=== PATIENT | male | born 1960 | race Caucasian/White ===

== ENCOUNTER 2018-03-23 07:08 | Day surgery (SDC) | payer OTHER ==
[~2018-03-23] VITALS: Ht 172.7 cm; Wt 72.6 kg
[2018-03-23] VITALS (11 sets, daily range): BP systolic 120–149; BP diastolic 85–95
[~2018-03-23 07:08] MED LIST: CRESTOR10 M1 ORAL; LOSARTAN POTAS100 MG ORAL; METOPROLOL SUCC50 MG ORAL
[2018-03-23] MEDS ORDERED: LR 1000ml 1,000 ML IVLG SCH (07:13)
[2018-03-23] MEDS ORDERED: fentaNYL 100 mcg/2 mL IV ONE (07:41)
[2018-03-23] MEDS ORDERED: Lidocaine 1% MPF 10mg/ml 5ml ONE (07:41)
[2018-03-23] MEDS ORDERED: Propofol 200mg/20ml IV ONE ×2 (07:42→08:00)
[2018-03-23] MEDS ORDERED: LR 1000ml ONE (08:00)
--- NOTE | 2018-03-23 08:07 | Short Stay Surgery H&P ---
History of Present Illness History of Present Illness Chief Complaint see typed H&P HPI Britton Mcgregor is a 57 year old male who was admitted on for Screening Patient History Allergies: Coded Allergies: AMOXICILLIN (Verified Adverse Reaction, Severe, 03/23/18) LIVER FAILURE CLAVULANIC ACID (Verified Adverse Reaction, Severe, 03/23/18) LIVER FAILURE CORTISONE (Verified Adverse Reaction, Severe, 03/23/18) LIVER FAILURE Medication History Scheduled Losartan Potassium (Losartan Potassium), 100 MG ORAL DAILY, (Reported) Metoprolol Succinate* (Metoprolol Succinate*), 50 MG ORAL DAILY, (Reported) Rosuvastatin Calcium (Crestor), 5 MG ORAL DAILY, (Reported) Physical Exam Vital Signs Last Vital Signs Date Time Temp Pulse Resp B/P (MAP) Pulse Ox O2 Delivery O2 Flow Rate FiO2 03/23/18 07:33 97.7 61 20 137/87 (104) 97.7 03/23/18 07:32 Room Air Plan Attestation Are the patient's medical conditions optimized for surgery? Chris Melgoza MD Mar 23, 2018 08:07
--- NOTE | 2018-03-23 08:07 | Pre-Procedure Note/Attestation ---
Pre-Procedure Note/Attestation Complete Prior to Procedure Planned Procedure: not applicable Procedure Narrative: colonoscopy Indications for Procedure Pre-Operative Diagnosis: screening Attestation I attest that I discussed the nature of the procedure; its benefits; risks and complications; and alternatives (and the risks and benefits of such alternatives ), prior to the procedure, with the patient (or the patient's legal field representative/health education). I attest that, if there was a reasonable possibility of needing a blood transfusion, the patient (or the patient's legal field representative/health education) was given the [facility] standardized written summary, pursuant to the [place] Blood Safety Act ([place] Health and Safety Code # 1645, as amended). I attest that I re-evaluated the patient just prior to the surgery and that there has been no change in the patient's H&P, except as documented below: Chris Melgoza MD Mar 23, 2018 08:07
--- NOTE | 2018-03-23 09:07 | Endoscopy Procedure Note ---
Endoscopy Procedure Note General Indication for Procedure: screening Procedures Performed: colonoscopy Operative Findings/Diagnosis: 3-4 mm ascending polyp - bx off, redundant colon , mild hemorroid Specimen: yes Pt Tolerated Procedure Well: Yes Estimated Blood Loss: none Anesthesia Anesthesiologist: see report Anesthesia: MAC, moderate sedation Medications Medication Given: see anesthesia record Inserted Devices Implant(s) used?: No GI Core Measures 50 yrs or older w/o bx or poly: No 10yrs. F/U not recommended: No If not recommended, why?: Above average risk 10 yrs. F/U needed: No 18 years or older w/prev. colo: Yes <3yrs. since last colonoscopy: No Med reason:<3 yrs.: System Reason:<3 yrs.: Last colonoscopy >= to 3yrs: Yes Chris Melgoza MD Mar 23, 2018 09:07
--- NOTE | 2018-03-23 09:10 | Brief Operative Note ---
Immediate Post Operative Note Operative Note Chief Complaint: screen Pre-op Diagnosis: screening Procedure: colon, bx Post-op Diagnosis: ascending colon polyp, 3-4mm, bx off redundant colon mild rhoid Surgeon: amairani Anesthesiologist: see report Anesthesia: MAC Specimen: yes Complications: none Condition: stable Fluids: see report Estimated Blood Loss: none Drains: none Implant(s) used?: No Chris Melgoza MD Mar 23, 2018 09:10
--- NOTE | 2018-03-23 09:24 | Anethesia Preoperative Eval ---
Anesthesia Pre-op PMH/ROS General Date of Evaluation: Mar 23, 2018 Time of Evaluation: 07:55 Anesthesiologist: ASA Score: ASA 3 Mallampati Score Class I : Soft palate, uvula, fauces, pillars visible Class II: Soft palate, uvula, fauces visible Class III: Soft palate, base of uvula visible Class IV: Only hard plate visible Mallampati Classification: Class II Surgeon: amairani Diagnosis: polyp screenig Surgical Procedure: colonoscopy Allergies: Coded Allergies: AMOXICILLIN (Verified Adverse Reaction, Severe, 03/23/18) LIVER FAILURE CLAVULANIC ACID (Verified Adverse Reaction, Severe, 03/23/18) LIVER FAILURE CORTISONE (Verified Adverse Reaction, Severe, 03/23/18) LIVER FAILURE Medications: see eMAR Past Medical History Cardiovascular: Reports: HTN Pulmonary: Denies: asthma, COPD, LETA, other Gastrointestinal/Genitourinary: Reports: other - h/o liver failure 2017- resolved; Denies: GERD, CRI, ESRD Neurologic/Psychiatric: Denies: dementia, CVA, depression/anxiety, TIA, other Endocrine: Denies: DM, hypothyroidism, steroids, other HEENT: Denies: cataract (L), cataract (R), glaucoma, [place] (L), [place] (R), other Hematology/Immune: Denies: anemia, DVT, bleeding disorder, other Musculoskeletal/Integumentary: Reports: other - gout; Denies: OA, RA, DJD, DDD, edema Anesthesia Pre-op Phys. Exam Physician Exam Last Vital Signs Date Time Temp Pulse Resp B/P (MAP) Pulse Ox O2 Delivery O2 Flow Rate FiO2 03/23/18 09:15 97.4 62 19 120/88 100 Simple Mask 6 97.4 Constitutional: NAD Cardiovascular: RRR Respiratory: CTA Gastrointestinal: S/NT/ND Airway Exam Mallampati Score: Class II MO: full ROM: full Teeth: intact Dentures: no upper, no lower Anesthesia Pre-op A/P Risk Assessment & Plan Assessment: asa 3 Plan: MAC Status Change Before Surgery: No Pre-Antibiotics Drug: none Kareen Murillo M.D. Mar 23, 2018 09:24
--- NOTE | 2018-03-23 09:26 | Immediate Post-Op Evaluation ---
Immediate Post-Op Evalulation Immediate Post-Op Evalulation Procedure: colonoscopy Date of Evaluation: Mar 23, 2018 Time of Evaluation: 09:10 IV Fluids: LR 300ml Blood Products: 0 Estimated Blood Loss: 0 Urinary Output: 0 Blood Pressure Systolic: 120 Blood Pressure Diastolic: 88 Pulse Rate: 61 Respiratory Rate: 19 O2 Sat by Pulse Oximetry: 100 Temperature (Fahrenheit): 97.4 Pain Score (1-10): 0 Nausea: No Vomiting: No Complications none Patient Status: reacts, patent, none Hydration Status: adequate Kareen Murillo M.D. Mar 23, 2018 09:26
--- NOTE | 2018-03-23 10:45 | 48 Hour Post Anesthesia Eval ---
Post Anesthesia Evaluation Procedure: colonoscopy Date of Evaluation: Mar 23, 2018 Time of Evaluation: 10:20 Blood Pressure Systolic: 135 0: 94 Pulse Rate: 54 Respiratory Rate: 17 Temperature (Fahrenheit): 97 O2 Sat by Pulse Oximetry: 97 Nausea: No Vomiting: No Pain Intensity: 0 Hydration Status: adequate Mental Status/LOC: patient returned to baseline Post-Anesthesia Complications: none Follow-up care needed: ready to discharge Kareen Murillo M.D. Mar 23, 2018 10:45
--- NOTE | 2018-03-23 23:00 | Procedure Note ---
DATE OF PROCEDURE: 03/23/2018 PROCEDURE: Colonoscopy with biopsy. SURGEON: Chris Melgoza M.D. ANESTHESIA: Please see the separate anesthesiologist notes for details. PRE-ENDOSCOPIC DIAGNOSIS: Screening colonoscopy. POST-ENDOSCOPIC DIAGNOSIS: Diminutive ascending colon polyp, status post biopsy removal. DESCRIPTION OF PROCEDURE: The procedure, its risks, indications, alternatives, and possible complications including bleeding, infection, and perforation were explained to the patient and informed consent was obtained. The patient was then sedated in the left lateral decubitus position and a rectal exam was done, which was normal. The colonoscope was then introduced into the rectum and advanced to the terminal ileum. The colon was somewhat redundant making passage more difficult. The terminal ileum was examined for about 5 to 10 cm, which was normal. In the ascending colon, there was a 3 to 4 mm diminutive polyp, which was removed with the biopsy forceps. Retroflexed view of the rectum was unremarkable except for some mild internal hemorrhoids. The colonoscope was removed and the patient was sent to recovery in good condition. COMPLICATIONS: None. RECOMMENDATIONS: 1. Follow up biopsy results. 2. Outpatient followup. Chris Melgoza M.D. DR: BOLIVAR JOB#: [id number] CC:
== END 2018-03-23 10:35 | disposition home or self-care (01) ==
LOC: GAS 07:08
DX: Z12.11 Encounter for screening for malignant neoplasm of colon (principal); D12.2 Benign neoplasm of ascending colon; E78.00 Pure hypercholesterolemia, unspecified; I10 Essential (primary) hypertension; M10.9 Gout, unspecified; Z88.0 Allergy status to penicillin; Z88.8 Allergy status to other drugs, medicaments and biological substances
CPT/HCPCS: 45380; J2250; J2704; J7120; 94003; 94150